=== PATIENT | female | born 1980 ===

== ENCOUNTER 2016-12-02 22:50 | Emergency (ER) | payer SELFPAY ==
[2016-12-02 23:59] VITALS: BP 120/69; PULSE 83; RESP 18; TEMP 98; O2SAT 97
--- NOTE | 2016-12-03 00:26 | C.PDOC ---
History Of Present Illness Patient is a 36 y/o female who presents to the ED s/p sexual intercourse with a complaint of a lost condom. Patient reports to have had sexual intercourse three hours ago. Admits to itchiness. Denies fever or chills. No other physical complaints at this time. Time Seen by Provider: 12/02/16 23:55 Chief Complaint (Nursing): Female Genitourinary History Per: Patient History/Exam Limitations: no limitations Onset/Duration Of Symptoms: Hrs (three hourse since sexual intercourse) Current Symptoms Are (Timing): Still Present Associated Symptoms: denies: Fever, Chills Recent travel outside of the [place]: No Additional History Per: Patient Past Medical History Reviewed: Historical Data, Nursing Documentation, Vital Signs Vital Signs: Last Vital Signs Temp 98.0 F 12/02/16 23:56 Pulse 83 12/02/16 23:56 Resp 18 12/02/16 23:56 BP 120/69 12/02/16 23:56 Pulse Ox 97 12/03/16 02:20 - Medical History PMH: No Chronic Diseases Surgical History: Appendectomy Family History: States: Unknown Family Hx - Social History Hx Alcohol Use: No Hx Substance Use: No Review Of Systems Constitutional: Negative for: Fever, Chills Genitourinary: Positive for: Other (condom lost) Physical Exam - Physical Exam Appears: Well, Non-toxic, No Acute Distress Skin: Normal Color, Warm, Dry Head: Atraumatic, Normacephalic Eye(s): bilateral: Normal Inspection, EOMI Nose: Normal Oral Mucosa: Moist Neck: Normal ROM, Supple Chest: Symmetrical Respiratory: No Accessory Muscle Use Gastrointestinal/Abdominal: Soft, No Tenderness Pelvic: Normal External Exam, No Vaginal Bleeding, No Vaginal Discharge, No Cervical Motion Tenderness, Other (foreign body in vault) ED Course And Treatment O2 Sat by Pulse Oximetry: 97 Progress Note: Plan: foreign body removed. Disposition - Disposition Disposition: HOME/ ROUTINE Disposition Time: 00:25 Condition: STABLE Additional Instructions: Vaya a rodriges mdico o la clnica en 1-3 menard sin falta, para mas evaluacin. Volver a la nicholas de emergencia en cualquier momento si los sntomas persisten o empeoran. Instructions: Vaginal Foreign Body (ED) Forms: [employer] (Croatian) Print Language: CROATIAN - Clinical Impression Clinical Impression: Vaginal foreign body - Scribe Statement The provider has reviewed the documentation as recorded by the Scribe Lesvia Adamson All medical record entries made by the Scribe were at my direction and personally dictated by me. I have reviewed the chart and agree that the record accurately reflects my personal performance of the history, physical exam, medical decision making, and the department course for this patient. I have also personally directed, reviewed, and agree with the discharge instructions and disposition.
== END 2016-12-03 00:30 | disposition home or self-care (01) ==
LOC: C.ER 22:50
DX: T19.2XXA Foreign body in vulva and vagina, initial encounter (principal); X58.XXXA Exposure to other specified factors, initial encounter

== ENCOUNTER 2016-12-19 07:45 | Emergency (ER) | payer OTHER ==
[2016-12-19 07:45] VITALS: BMI 21.2
[2016-12-19 07:58] VITALS: RESP 16; TEMP 98.2
[2016-12-19 08:20] LABS: RBC URINE 3 /hpf (0-3); URINE BILIRUBIN NEGATIVE (NEGATIVE); URINE BLOOD NEGATIVE (NEGATIVE); URINE COLOR Yellow (YELLOW); URINE GLUCOSE (UA) NORMAL (Normal); URINE KETONE 1+ mg/dL (NEGATIVE); URINE LEUKOCYTE ESTERASE NEG Leu/uL (Negative); URINE PROTEIN NEGATIVE (NEGATIVE); WBC URINE 4 /hpf (0-5)
--- NOTE | 2016-12-19 08:34 | C.PDOC ---
History Of Present Illness 36-year-old female, presents to emergency department with complaints of recurring biliary colic pain since yesterday. Patient has a history of multiple ER visits since 12/02 for same complaint. Patients most recent Ultrasound reveals gallstones. Patient had a f/u appointment in clinic and is currently pending surgical evaluation. Patient states she has been on liquid only diet since symptoms started, and is only taking medication for nausea, nothing for pain. Denies fevers or chills. Time Seen by Provider: 12/19/16 08:05 Chief Complaint (Nursing): Abdominal Pain History Per: Patient History/Exam Limitations: no limitations Onset/Duration Of Symptoms: Days, Waxing/Waning Severity: Moderate Past Medical History Reviewed: Historical Data, Nursing Documentation, Vital Signs Vital Signs: Last Vital Signs Temp 98.2 F 12/19/16 07:53 Pulse 99 H 12/19/16 07:53 Resp 16 12/19/16 07:53 BP 105/63 12/19/16 07:53 Pulse Ox 98 12/19/16 09:16 Family History: States: No Known Family Hx - Social History Hx Tobacco Use: No Hx Alcohol Use: No Hx Substance Use: No - Immunization History Hx Tetanus Toxoid Vaccination: No Hx Influenza Vaccination: No Hx Pneumococcal Vaccination: No Review Of Systems Except As Marked, All Systems Reviewed And Found Negative. Constitutional: Negative for: Fever, Chills Cardiovascular: Negative for: Chest Pain, Palpitations Respiratory: Negative for: Shortness of Breath Gastrointestinal: Positive for: Nausea, Abdominal Pain Musculoskeletal: Negative for: Back Pain Neurological: Negative for: Weakness, Numbness Physical Exam - Physical Exam Appears: Non-toxic, No Acute Distress (Moderate distress) Skin: Warm, Dry, No Rash Head: Atraumatic, Normacephalic Nose: Normal Oral Mucosa: Moist Lips: Normal Appearing Neck: Normal ROM Chest: Symmetrical Cardiovascular: Rhythm Regular, No Murmur Respiratory: Normal Breath Sounds, No Accessory Muscle Use Gastrointestinal/Abdominal: Soft, Tenderness (RUQ), No Guarding, No Rebound Extremity: Normal ROM Neurological/Psych: Oriented x3, Normal Speech ED Course And Treatment - Laboratory Results Result Diagrams: 12/19/16 08:47 12/19/16 08:47 O2 Sat by Pulse Oximetry: 98 Progress - Re-Evaluation Re-evaluation Note: 12/19/16 10:32 ABD PAIN, NV RESOLVED. US, LABS UNCH FROM PRIOR. DC W PAIN RX. PS PRIOR ANTIEMETIC RX "DOESN'T HELP", REQUESTING ALTERNATE MED. - Data Reviewed Data Reviewed: Lab, Diagnostic imaging, Old records Disposition Counseled Patient/Family Regarding: Studies Performed, Diagnosis, Need For Followup, Rx Given - Disposition Referrals: [facility] [Outside] [facility] [Outside] Disposition: HOME/ ROUTINE Disposition Time: 10:33 Condition: IMPROVED Additional Instructions: CITACIN DE SEGUIMIENTO DE LA CIRUGA DE SEGUIMIENTO SEGN LO ESTABLECIDO. HEIDY MEDICAMENTOS SEGN SEA NECESARIO. Prescriptions: Acetaminophen [Tylenol 325mg tab] 650 mg PO Q6 #30 tab Docusate Sodium [Colace] 100 mg PO BID PRN #30 capsule PRN Reason: Constipation Metoclopramide [Reglan] 1 tab PO TID PRN #25 tab PRN Reason: Nausea/Vomiting oxyCODONE/Acetaminophen [Percocet 5/325 mg Tab] 1 ea PO QID #8 tab Instructions: Biliary Colic (ED) Forms: [employer] (Salvadorean), Work Excuse Print Language: ENGLISH - Clinical Impression Clinical Impression: Biliary colic, Nausea - Scribe Statement The provider has reviewed the documentation as recorded by the Scribe (Sterling Heranndez) All medical record entries made by the Scribe were at my direction and personally dictated by me. I have reviewed the chart and agree that the record accurately reflects my personal performance of the history, physical exam, medical decision making, and the department course for this patient. I have also personally directed, reviewed, and agree with the discharge instructions and disposition.
[2016-12-19] MEDS ORDERED: Sodium Chloride 0.9% 1,000 ML IV ONE (08:37)
[2016-12-19] MEDS ORDERED: Sodium Chloride 0.9% 1,000 ML ONE (08:49)
[2016-12-19 08:57] LABS: BASO % 0.4 % (0.0-2.0); EOS % 0.2 % (0.0-4.0); HEMATOCRIT 38.8 % (34.0-47.0); LYMPH # 1.1 K/uL (1.0-4.3); MEAN CELL VOLUME 85.3 fL (81.0-99.0); MEAN CORPUSCULAR HEMOGLOBIN 28.8 pg (27.0-31.0); MEAN CORPUSCULAR HGB CONC 33.7 g/dL (33.0-37.0); MEAN PLATELET VOLUME 10.1 fL (7.2-11.7); MONO # 0.5 K/uL (0.0-0.8); RED CELL DISTRIBUTION WIDTH 14.4 % (11.5-14.5); WHITE BLOOD COUNT 10.8 K/uL (4.8-10.8)
[2016-12-19 09:12] LABS: CHLORIDE 104 mmol/L (98-107); POTASSIUM 3.7 mmol/L (3.6-5.2); SODIUM 138 mmol/L (132-148)
[2016-12-19 09:14] LABS: AST/SGOT 15 U/L (14-36); BILIRUBIN,TOTAL 0.6 mg/dL (0.2-1.3); CARBON DIOXIDE 21 mmol/L (22-30); GFR AFRICAN-AMERICAN > 60
[2016-12-19 09:15] LABS: ALB/GLOB RATIO 1.4 (1.0-2.1); ALKALINE PHOSPHATASE 73 U/L (38-126); ALT/SGPT 28 U/L (9-52); BLOOD UREA NITROGEN 7 mg/dL (7-17); CALCIUM 8.3 mg/dl (8.6-10.4); GLUCOSE,RANDOM 94 mg/dL (65-105)
--- NOTE | 2016-12-19 10:03 | US ---
HISTORY: abd pain RO ACUTE RENE COMPARISON: None. TECHNIQUE: Sonographic evaluation of the right upper quadrant of the abdomen. FINDINGS: LIVER: Measures 14.5 cm in length. There is diffuse increased echogenicity of the liver parenchyma. No mass. No intrahepatic bile duct dilatation. GALLBLADDER: There are multiple gallstones. No gallbladder wall thickening, pericholecystic fluid or positive sonographic Waite's sign. COMMON BILE DUCT: Measures 4.0 mm. No stones. No dilatation. PANCREAS: Unremarkable as visualized. No mass. No ductal dilatation. RIGHT KIDNEY: Measures 10.5 cm in length. There is a 3 mm echogenic focus in the interpolar region. Normal echogenicity. No hydronephrosis. AORTA: No aneurysmal dilatation. IVC: Unremarkable. OTHER FINDINGS: None . IMPRESSION: Cholelithiasis. No evidence of acute cholecystitis. Diffuse increased echogenicity in the liver may reflect hepatic steatosis however parenchymal infectious/ inflammatory etiologies cannot be entirely excluded. Clinical and laboratory correlation is advised. . Question of 3 mm nonobstructing stone in the interpolar region of the right kidney. No hydronephrosis.
[2016-12-19] MEDS ORDERED: Oxycodone/Acetaminophen 5/325 mg Tab PO STA (10:29)
[2016-12-19] MEDS ORDERED: Oxycodone/Acetaminophen 5/325 mg Tab ONE (10:35)
[2016-12-19 11:16] VITALS: BP 110/67; PULSE 85; O2SAT 99
== END 2016-12-19 11:16 | disposition home or self-care (01) ==
LOC: C.ER 07:45
DX: K80.50 Calculus of bile duct without cholangitis or cholecystitis without obstruction (principal); R11.0 Nausea
CPT/HCPCS: 76705; 80053; 81001; 83690; 85025; 96361; 96374; 96375; 99283; J2270; J2405; J7040

== ENCOUNTER 2016-12-25 05:55 | Day surgery (SDC) | payer OTHER ==
[2016-12-23 10:12] VITALS: BMI 21.6
[2016-12-25] MEDS ORDERED: Propofol 10 mg/ml Inj (20 ML) ONE ×2 (07:37→09:56)
[2016-12-25] MEDS ORDERED: Midazolam 2 MG/2 ML VIAL ONE (07:38)
[2016-12-25] MEDS ORDERED: Bupivacaine-Epi 0.25%-1:200,000 PF Inj ONE (07:39)
[2016-12-25] MEDS ORDERED: Lidocaine 1% Inj (20ml) ONE (07:39)
[2016-12-25] MEDS ORDERED: ceFAZolin IV 2 gm in Dextrose 2 GM/50 ML BAG IVPB ONE (08:22)
[2016-12-25] MEDS ORDERED: Neostigmine Methylsulfate 3mg/3ml Syringe IV ONE (09:56)
[2016-12-25] MEDS ORDERED: HYDROmorphone 0.5 mg/0.5 ml ISec IVP PRN (10:56)
[2016-12-25] MEDS ORDERED: Oxycodone/Acetaminophen 5/325 mg Tab PO PRN (11:01)
--- NOTE | 2016-12-25 11:01 | PCM.SURG1 ---
Surgeon's Initial Post Op Note - Surgeon's Notes Surgeon: Dr. Herrera Linen Manager: Bassam PGY1, Nievse HOLLIS Type of Anesthesia: General Endo Pre-Operative Diagnosis: Cholelithiasis/Cholecystitis Operative Findings: see operative report Post-Operative Diagnosis: Cholelithiasis/Cholecystitis Operation Performed: Laparoscopic cholecystectomy Specimen/Specimens Removed: Gallbladder, Gallstones Estimated Blood Loss: EBL {In ML}: 10 Blood Products Given: N/A Drains Used: No Drains Post-Op Condition: Good Date of Surgery/Procedure: 12/25/16 Time of Surgery/Procedure: 08:30
[2016-12-25 13:03] VITALS: RESP 16
[2016-12-25 14:12] VITALS: BP 102/61; PULSE 85; TEMP 98.9; O2SAT 98
--- NOTE | 2016-12-25 16:11 | OP ---
PROCEDURE DATE: 12/25/2016 PREOPERATIVE DIAGNOSES: Chronic cholecystitis and cholelithiasis. POSTOPERATIVE DIAGNOSES: Chronic cholecystitis and cholelithiasis. PROCEDURE DONE: Laparoscopic cholecystectomy. SURGEON: Reno Herrera MD. COSTUME DRAPER: BUNNY Card, and Emmanuel, PGY-1 resident. ANESTHESIA: General endotracheal tube anesthesia. ESTIMATED BLOOD LOSS: Around 10 mL. DRAIN: None. PATHOLOGY: Gallbladder with gallstone was sent for pathology. COMPLICATIONS: None. INTRAOPERATIVE FINDINGS: The patient had a chronic cholecystitis and cholelithiasis. DESCRIPTION OF PROCEDURE: On intraoperative steps, this 36-year-old female who was diagnosed with the chronic cholecystitis and cholelithiasis, and the patient was consented for the laparoscopic cholecystectomy possible open, brought to the OR, placed supine on the operating table. After induction of the anesthesia, the abdomen was prepped and draped in usual sterile fashion. The supraumbilical transverse incision was made. After incising the skin and subcutaneous tissue, the fascia was incised, a Quincy port was placed and pneumo was created. The 12-mm port was placed in the midline below costal margin. Another two 5-mm ports were placed in the midclavicular and anterior axillary line after the grasper and dissector was introduced and the gallbladder was retracted cranially. Calot triangle dissection was done. Cystic duct and cystic artery was identified and clipped at 3 places and cut in between 2 clips near by gallbladder and gallbladder was dissected free from the gallbladder fossa, taken in EndoCatch bag, taken out through the umbilical port site and sent off the table for the pathology. There was a proper hemostasis and each and every part of the procedure, and the patient tolerated the procedure well. Count of the instrument and gauze was correct. There was no apparent complication. The umbilical port site was closed in 2 layers, the fascia with a 0-Vicryl interrupted sutures, skin with a 4-0 Monocryl and dry sterile dressing was applied. The patient was sent to the postanesthesia care unit in stable condition after extubation. Reno Herrera MD [facility] # [id number] BETHEL
== END 2016-12-25 14:15 | disposition home or self-care (01) ==
LOC: C.SDS 05:55
PROVIDERS: ATTEND Surgery Surgical Critical Care
DX: K80.10 Calculus of gallbladder with chronic cholecystitis without obstruction (principal)
CPT/HCPCS: 47562; 88304; J1100; J1885; J2250; J2405; J2704; J2710; J3010

== ENCOUNTER 2017-01-19 13:47 | Emergency (ER) | payer OTHER ==
[2017-01-19 13:54] VITALS: BMI 19.7
--- NOTE | 2017-01-19 14:53 | C.PDOC ---
History Of Present Illness 36 yr old female post-op gallbladder surgery 12 days ago, presents to the ER for evaluation of left anterior shoulder/chest pain since yesterday morning. Patient states the pain is worse in the morning and with movement also associated with sweaty palms. States the pain is 4/10. Otherwise, patient denies injury, fever, nausea, vomiting, neck pain, back pain, weakness or numbness. Time Seen by Provider: 01/19/17 14:32 Chief Complaint (Nursing): Chest Pain History Per: Patient History/Exam Limitations: no limitations Onset/Duration Of Symptoms: Days (1) Past Medical History Reviewed: Historical Data, Nursing Documentation, Vital Signs Vital Signs: Last Vital Signs Temp 97.7 F 01/19/17 16:51 Pulse 78 01/19/17 16:51 Resp 20 01/19/17 16:51 BP 106/68 01/19/17 16:51 Pulse Ox 96 01/19/17 16:51 - Medical History PMH: Gall Bladder Disease Surgical History: Appendectomy, Cholecystectomy Family History: States: No Known Family Hx - Social History Hx Tobacco Use: No Hx Alcohol Use: No Hx Substance Use: No - Immunization History Hx Tetanus Toxoid Vaccination: No Hx Influenza Vaccination: No Hx Pneumococcal Vaccination: No Review Of Systems Except As Marked, All Systems Reviewed And Found Negative. Constitutional: Negative for: Fever Cardiovascular: Positive for: Chest Pain (Left anterior) Gastrointestinal: Negative for: Nausea, Vomiting Musculoskeletal: Positive for: Shoulder Pain (Left anterior chest pain). Negative for: Neck Pain, Back Pain Neurological: Negative for: Weakness, Numbness Physical Exam - Physical Exam Appears: Non-toxic, No Acute Distress Skin: Warm, Dry, No Rash Head: Atraumatic, Normacephalic Oral Mucosa: Moist Neck: Normal, Normal ROM, Supple Cardiovascular: Rhythm Regular, No Murmur Respiratory: Normal Breath Sounds, No Rales, No Rhonchi, No Stridor, No Wheezing Extremity: Normal ROM, Tenderness (Tenderness to the left anterior shoulder), Capillary Refill (<2 secs) Neurological/Psych: Oriented x3, Normal Speech, Normal Motor, Normal Sensation ED Course And Treatment ECG: Interpreted By Me, Viewed By Me ECG Rhythm: Sinus Rhythm Rate From EC (BPM) O2 Sat by Pulse Oximetry: 95 (RA) Pulse Ox Interpretation: Normal - Radiology CXR: Viewed By Me, Read By Radiologist CXR Interpretation: Yes: No Acute Disease Medical Decision Making Medical Decision Making: PLAN: * EKG CXR and EKG w/i normal. Motrin, Tylenol given. Patient requesting discharge. Disposition Counseled Patient/Family Regarding: Need For Followup - Disposition Referrals: [facility] [Outside] Disposition Time: 16:53 Condition: IMPROVED Prescriptions: Ibuprofen [Motrin] 1 tab PO TID PRN #30 tab PRN Reason: Pain Instructions: RICE Therapy (ED) Forms: Gen Discharge Inst Czech, [facility] (Czech) - POA Present On Arrival: None - Clinical Impression Clinical Impression: Left shoulder pain - Scribe Statement The provider has reviewed the documentation as recorded by the Frankie Braden Provider Attestation: All medical record entries made by the Cynibkeila were at my direction and personally dictated by me. I have reviewed the chart and agree that the record accurately reflects my personal performance of the history, physical exam, medical decision making, and the department course for this patient. I have also personally directed, reviewed, and agree with the discharge instructions and disposition.
--- NOTE | 2017-01-19 15:36 | RAD ---
HISTORY: chest pain COMPARISON: 12/23/2016 TECHNIQUE: Chest PA and lateral FINDINGS: LUNGS: No consolidation Bilateral hyperinflation. Bilateral prominent nipple shadows PLEURA: No significant pleural effusion identified. No pneumothorax apparent. CARDIOVASCULAR: Normal. OSSEOUS STRUCTURES: No significant abnormalities. VISUALIZED UPPER ABDOMEN: Normal. OTHER FINDINGS: None. IMPRESSION: No active disease.
[2017-01-19 16:51] VITALS: BP 106/68; PULSE 78; RESP 20; TEMP 97.7
[2017-01-19 16:55] VITALS: O2SAT 95
--- NOTE | 2017-01-19 20:46 | CARD ---
APPROVED REPORT EKG Measurement Heart [id number] <Conclusion> Normal sinus rhythm Normal ECG
== END 2017-01-19 17:16 | disposition home or self-care (01) ==
LOC: C.ER 13:47
DX: M25.512 Pain in left shoulder (principal)

== ENCOUNTER 2017-05-28 16:28 | Emergency (ER) | payer OTHER ==
[2017-05-28 16:28] VITALS: BMI 20.2
[2017-05-28 16:38] VITALS: BP 117/74; PULSE 87; RESP 16; TEMP 98.2; O2SAT 98
--- NOTE | 2017-05-28 16:42 | C.PDOC ---
Time Seen by Provider: 05/28/17 16:38 Chief Complaint (Nursing): High Blood Pressure Past Medical History Vital Signs: Last Vital Signs Temp 98.2 F 05/28/17 16:35 Pulse 87 05/28/17 16:35 Resp 16 05/28/17 16:35 BP 117/74 05/28/17 16:35 Pulse Ox 98 05/28/17 16:35 - Medical History PMH: Gall Bladder Disease Surgical History: Appendectomy, Cholecystectomy Family History: States: Unknown Family Hx - Social History Hx Tobacco Use: No Hx Alcohol Use: No Hx Substance Use: No - Immunization History Hx Tetanus Toxoid Vaccination: No Hx Influenza Vaccination: No Hx Pneumococcal Vaccination: No ED Course And Treatment O2 Sat by Pulse Oximetry: 98 Disposition - Disposition
--- NOTE | 2017-05-28 16:45 | C.PDOC ---
History Of Present Illness History was obtained using a solid waste facility operator. 36 year old female is sent to the ED from her pharmacy for possible low blood pressure. Patient is currently c/o anxiety regarding an upcoming trip. Patient denies other associated complaints. VIA TRANS REFERRED FROM PHARMACY FOR POSISBLE LOW BLOOD PRESSURE. CO ANXIETY REGARDING UPCOMING TRIP. DENIES OTHER ASSOC SX EXAM NEG Time Seen by Provider: 05/28/17 16:38 Chief Complaint (Nursing): High Blood Pressure History Per: Patient History/Exam Limitations: no limitations Onset/Duration Of Symptoms: Hrs Current Symptoms Are (Timing): Still Present Recent travel outside of the [place]: No Additional History Per: Patient Past Medical History Reviewed: Historical Data, Nursing Documentation, Vital Signs Vital Signs: Last Vital Signs Temp 98.2 F 05/28/17 16:35 Pulse 87 05/28/17 16:35 Resp 16 05/28/17 16:35 BP 117/74 05/28/17 16:35 Pulse Ox 98 05/28/17 16:45 - Medical History PMH: Gall Bladder Disease Surgical History: Appendectomy, Cholecystectomy Family History: States: Unknown Family Hx - Social History Hx Tobacco Use: No Hx Alcohol Use: No Hx Substance Use: No - Immunization History Hx Tetanus Toxoid Vaccination: No Hx Influenza Vaccination: No Hx Pneumococcal Vaccination: No Review Of Systems Constitutional: Negative for: Fever, Chills Cardiovascular: Negative for: Chest Pain Respiratory: Negative for: Shortness of Breath Gastrointestinal: Negative for: Vomiting, Abdominal Pain Skin: Negative for: Rash Neurological: Negative for: Weakness, Numbness, Headache, Dizziness Physical Exam - Physical Exam Appears: Non-toxic, No Acute Distress Skin: Normal Color, Warm, Dry Head: Atraumatic, Normacephalic Eye(s): bilateral: Normal Inspection Nose: No Discharge Oral Mucosa: Moist Neck: Normal ROM, Supple Chest: Symmetrical Cardiovascular: Rhythm Regular, No Murmur Respiratory: Normal Breath Sounds, No Rales, No Rhonchi, No Wheezing Gastrointestinal/Abdominal: Soft, No Tenderness, No Guarding, No Rebound Extremity: Normal ROM, No Tenderness, No Swelling Neurological/Psych: Oriented x3, Normal Motor, Normal Sensation Gait: Steady ED Course And Treatment O2 Sat by Pulse Oximetry: 98 (On RA) Pulse Ox Interpretation: Normal Disposition Counseled Patient/Family Regarding: Diagnosis, Need For Followup - Disposition Referrals: [facility] [Outside] [facility] [Outside] Disposition: HOME/ ROUTINE Disposition Time: 16:44 Condition: GOOD Instructions: Anxiety, Adult (DC) Forms: [facility] (British) - Clinical Impression Clinical Impression: Anxiety - Scribe Statement The provider has reviewed the documentation as recorded by the Scribe Elliott Hernandez All medical record entries made by the Scribe were at my direction and personally dictated by me. I have reviewed the chart and agree that the record accurately reflects my personal performance of the history, physical exam, medical decision making, and the department course for this patient. I have also personally directed, reviewed, and agree with the discharge instructions and disposition.
== END 2017-05-28 16:57 | disposition home or self-care (01) ==
LOC: C.ER 16:28
DX: F41.9 Anxiety disorder, unspecified (principal)